=== PATIENT | male | born 2000 | race Caucasian/White ===

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

== ENCOUNTER 2020-03-21 21:50 | Emergency (ER) | payer MEDICAID ==
[~2020-03-21] VITALS: Ht 175.3 cm; Wt 52.3 kg
[2020-03-21 22:00] VITALS: BP 125/62
--- NOTE | 2020-03-21 22:15 | NUR ---
pt c/o puncture wound to anterior rt lower leg at 1600 to by a wire fence, pt removed wire and cleaned wire prior to arrival in ER, last tetanus was 2 years ago. Waiting to be evaluated
[2020-03-21] MEDS ORDERED: acetaminophen 325mg tablet PO ONE (22:50)
[2020-03-21] MEDS ORDERED: clindamycin 150mg capsule PO ONE (22:50)
[2020-03-21] MEDS ORDERED: CLIN150C2 PO (22:51)
== END 2020-03-21 23:03 | disposition home or self-care (01) ==
LOC: ER 21:51
DX: S81.831A Puncture wound without foreign body, right lower leg, initial encounter (principal); Z88.0 Allergy status to penicillin; Z88.1 Allergy status to other antibiotic agents; Z79.2 Long term (current) use of antibiotics; W45.8XXA Other foreign body or object entering through skin, initial encounter; Y93.89 Activity, other specified; Y92.89 Other specified places as the place of occurrence of the external cause; Y99.8 Other external cause status
CPT/HCPCS: 99283

== ENCOUNTER 2020-07-29 12:22 | Emergency (ER) | payer MEDICAID ==
[~2020-07-29] VITALS: Ht 175.3 cm; Wt 54.5 kg
[2020-07-29 12:27] VITALS: BP 120/76
== END 2020-07-29 14:03 | disposition home or self-care (01) ==
LOC: ER 12:22
DX: J02.8 Acute pharyngitis due to other specified organisms (principal); Z20.828 Contact with and (suspected) exposure to other viral communicable diseases; Z88.0 Allergy status to penicillin; Z88.1 Allergy status to other antibiotic agents; Z87.81 Personal history of (healed) traumatic fracture
CPT/HCPCS: 36415; 87081; 87635; 87880; 99283

== ENCOUNTER 2020-09-24 14:51 | Emergency (ER) | payer MEDICAID ==
[~2020-09-24] VITALS: Ht 175.3 cm; Wt 54.5 kg
[2020-09-24 15:07] VITALS: BP 125/70
[2020-09-24] MEDS ORDERED: NAPR-56 PO (15:12)
[2020-09-24] MEDS ORDERED: CLIN150C2 PO (15:12)
== END 2020-09-24 15:24 | disposition home or self-care (01) ==
LOC: ER 14:52
DX: K04.7 Periapical abscess without sinus (principal); Z88.0 Allergy status to penicillin; Z88.1 Allergy status to other antibiotic agents; Z79.2 Long term (current) use of antibiotics; Z79.899 Other long term (current) drug therapy; Z87.81 Personal history of (healed) traumatic fracture
CPT/HCPCS: 99283

== ENCOUNTER 2020-11-08 11:56 | Emergency (ER) | payer MEDICAID ==
[~2020-11-08] VITALS: Ht 175.3 cm; Wt 52.0 kg
[2020-11-08 12:14] VITALS: BP 133/73
[2020-11-08 12:45] LABS: CLARITY,URINE CLOUDY (Clear); COLOR,URINE YELLOW (Yellow); GLUCOSE, URINE NEGATIVE (Neg); KETONES,URINE NEGATIVE (Neg); LEUKOCYTE ESTERASE ,URINE NEGATIVE (Neg); NITRITES, URINE NEGATIVE (Neg); OCCULT BLOOD,URINE NEGATIVE (Neg); PH,URINE 7.5 (4.8-8.0); PROTEIN,URINE NEGATIVE (Neg); UROBILINOGEN,URINE 0.2 E.U/dL (0.2-1.0)
[2020-11-08 12:49] LABS: UA COLLECTION TYPE CLN CATCH MIDSTREAM
[2020-11-08 12:58] LABS: SQUAMOUS EPITHELIAL CELL,UR NONE SEEN /LPF (FEW)
[2020-11-08 12:59] LABS: RBC,URINE 0-2 /HPF (0-2); WBC,URINE 0-4 /HPF (0-4)
[2020-11-08 13:00] LABS: AMORPHOUS PHOSPHATES 4+; BACTERIA,URINE NONE SEEN /HPF (Neg)
[2020-11-08] MEDS ORDERED: DOXYCYCLINE 100MG CAPSULE PO STA (13:19)
[2020-11-08] MEDS ORDERED: CefTRIAXone 250MG inj IM ONE (13:20)
[2020-11-08] MEDS ORDERED: DOXY100C76 PO (13:26)
== END 2020-11-08 13:53 | disposition home or self-care (01) ==
LOC: ER 11:58
DX: R30.0 Dysuria (principal); R36.9 Urethral discharge, unspecified; Z88.0 Allergy status to penicillin; Z88.1 Allergy status to other antibiotic agents; Z79.2 Long term (current) use of antibiotics
CPT/HCPCS: 36415; 81001; 87491; 99283

== ENCOUNTER 2020-11-27 16:11 | Emergency (ER) | payer MEDICAID ==
[~2020-11-27] VITALS: Ht 175.3 cm; Wt 52.3 kg
[2020-11-27 16:18] VITALS: BP 111/52
[2020-11-27 16:39] LABS: CLARITY,URINE CLEAR (Clear); COLOR,URINE YELLOW (Yellow); GLUCOSE, URINE NEGATIVE (Neg); KETONES,URINE NEGATIVE (Neg); LEUKOCYTE ESTERASE ,URINE NEGATIVE (Neg); NITRITES, URINE NEGATIVE (Neg); OCCULT BLOOD,URINE TRACE-INTACT (Neg); PH,URINE 5.5 (4.8-8.0); PROTEIN,URINE NEGATIVE (Neg); UROBILINOGEN,URINE 0.2 E.U/dL (0.2-1.0)
[2020-11-27 16:44] LABS: UA COLLECTION TYPE CLN CATCH MIDSTREAM
[2020-11-27 16:45] LABS: BACTERIA,URINE FEW /HPF (Neg); RBC,URINE 0-2 /HPF (0-2); SQUAMOUS EPITHELIAL CELL,UR FEW /LPF (FEW); WBC,URINE 0-4 /HPF (0-4)
[2020-11-27 17:12] LABS: BASOPHILS % (AUTO) 0.8 % (0-1); EOSINOPHILS % (AUTO) 0.7 % (0-6); HEMATOCRIT 44.1 % (42.0-52.0); HEMOGLOBIN 14.7 g/dl (14.0-17.9); LYMPHOCYTES # (AUTO) 2.3 X10'3 (1.1-4.8); MEAN CORPUSCULAR HGB CONC 33.4 g/dL (33.0-36.5); MEAN PLATELET VOLUME 7.3 FL (7.4-10.4); MONOCYTES # (AUTO) 0.6 X10'3 (0-0.9); MONOCYTES % (AUTO) 10.6 % (2-12); NEUTROPHILS # (AUTO) 2.8 X10'3 (1.8-7.7); NEUTROPHILS % (AUTO) 47.9 % (42-75); PLATELET COUNT 233 X10'3 (140-440); RED BLOOD COUNT 5.07 X10'6 (4.70-6.10); RED CELL DISTRIBUTION WIDTH 14.9 % (11.5-14.5); WHITE BLOOD COUNT 5.8 X10'3 (4.5-11.0)
[2020-11-27 17:23] LABS: ALANINE AMINOTRANSFERASE 18 U/L (12-78); ALBUMIN 4.4 G/DL (3.4-5.0); ALBUMIN/GLOBULIN RATIO 1.3 (1.1-1.5); ALKALINE PHOSPHATASE 77 IU/L (20-180); ANION GAP 11 (8-16); ASPARTATE AMINO TRANSFERASE 22 U/L (10-37); BILIRUBIN,TOTAL 0.9 MG/DL (0.1-1.0); BLOOD UREA NITROGEN 19 MG/DL (7-18); BUN/CREATININE RATIO 17.1 (5.4-32.0); CALCIUM 8.8 MG/DL (8.5-10.1); CHLORIDE 105 MMOL/L (99-107); CREATININE 1.11 MG/DL (0.60-1.10); GLUCOSE 87 MG/DL (70-104); LIPASE 67 U/L (73-393); POTASSIUM 3.5 MMOL/L (3.5-5.1); SODIUM 143 MMOL/L (135-145); TOTAL CARBON DIOXIDE 26.9 MMOL/L (24-32); TOTAL PROTEIN 7.7 G/DL (6.4-8.2); eGFR 84 ML/MIN
== END 2020-11-27 17:53 | disposition home or self-care (01) ==
LOC: ER 16:12
DX: R30.0 Dysuria (principal); R31.9 Hematuria, unspecified; Z88.0 Allergy status to penicillin; Z88.1 Allergy status to other antibiotic agents
CPT/HCPCS: 36415; 80053; 81001; 83690; 85025; 99283